=== PATIENT | male | born 1985 | race Caucasian/White ===

== ENCOUNTER 2016-09-25 20:28 | Emergency (ER) | payer BC ==
[~2016-09-25] VITALS: Ht 172.7 cm; Wt 113.6 kg
[~2016-09-25 20:28] MED LIST: CIPRO 500MG TA500 MG PO; DOXYCYCLINE 10100 MG PO; FLOMAX 0.40.4 MG/CAP PO; NO HOME MEDICATIONS; PERCOCET 325 MG1 TA2 PO; ZOCOR5 MG PO; ZOFRAN 4MG T4 MG/TAB PO
[2016-09-25 20:37] VITALS: TEMP 98.6
[2016-09-25 21:05] LABS: BASO # 0.1 (0.0-0.2); BASO % 0.5 % (0.0-2.0); EOS # 0.2 (0.0-0.7); EOS % 1.3 % (0-4.0); GRAN # 8.1 (1.4-6.5); GRAN % 63.4 % (42.2-75.2); HEMATOCRIT 47.7 % (42.0-52.0); HEMOGLOBIN 16.2 g/dl (13.5-18.0); LYMPH % 23.7 % (20.0-51.0); MEAN CELL VOLUME 90 fl (80.0-100.0); MEAN CORPUSCULAR HEMOGLOBIN 31 pg (27.0-31.0); MEAN CORPUSCULAR HGB CONC 34 g/dl (33.0-37.0); MEAN PLATELET VOLUME 9.1 fl (7.4-10.4); MONO # 1.3 (0.1-0.6); MONO % 10.5 % (1.7-9.3); PLATELET COUNT 345 K/mm3 (130-400); RED BLOOD COUNT 5.32 M/mm3 (4.20-5.60); REDCELL DISTRIBUTION WIDTH-CV 12.2 % (11.5-14.5); WHITE BLOOD COUNT 12.7 K/mm3 (4.8-10.8)
[2016-09-25 21:16] LABS: ADJUSTED CALCIUM 9.1 mg/dL (8.4-10.2); ALANINE AMINOTRANSFERASE 58 U/L (21-72); ALKALINE PHOSPHATASE 131 U/L (50-136); ANION GAP 12 mmol/L (7-16); BILIRUBIN,TOTAL 0.9 mg/dL (0.0-1.0); BLOOD UREA NITROGEN 14 mg/dL (9-20); CALCIUM 9.1 mg/dL (8.4-10.2); CARBON DIOXIDE 27 mmol/L (22-30); CHLORIDE 102 mmol/L (98-107); CREATININE, serum 1.12 mg/dL (0.66-1.25); GLUCOSE 107 mg/dL (74-106); LIPASE 81 U/L (23-300); MAGNESIUM 2.1 mg/dL (1.6-2.3); PHOSPHOROUS 3.3 mg/dL (2.5-4.5); POTASSIUM 3.9 mmol/L (3.4-5.0); SODIUM 141 mmol/L (137-145); TOTAL PROTEIN 7.8 gm/dL (6.4-8.2)
[2016-09-25 21:27] LABS: B-TYPE NATRIURETIC PEPTIDE 26 pg/mL (0-125)
[2016-09-25 21:28] LABS: TROPONIN-I < 0.012 ng/mL (0.000-0.034)
[2016-09-25 23:54] VITALS: BP 128/78; PULSE 80
== END 2016-09-25 23:56 | disposition home or self-care (01) ==
LOC: COL.ER 20:28
PROVIDERS: Emergency Medicine
DX: R07.89 Other chest pain (principal)

== ENCOUNTER 2017-10-27 15:08 | Emergency (ER) | payer BC ==
[~2017-10-27] VITALS: Ht 172.7 cm; Wt 115.9 kg
[2017-10-27 15:20] VITALS: TEMP 97.8
[2017-10-27 16:38] LABS: BASO # 0.1 (0.0-0.2); BASO % 0.7 % (0.0-2.0); EOS # 0.1 (0.0-0.7); EOS % 1.3 % (0-4.0); GRAN # 6.7 (1.4-6.5); GRAN % 62.7 % (42.2-75.2); HEMATOCRIT 45.5 % (42.0-52.0); HEMOGLOBIN 15.5 g/dl (13.5-18.0); LYMPH # 2.2 (1.2-3.4); MEAN CELL VOLUME 89 fl (80.0-100.0); MEAN CORPUSCULAR HEMOGLOBIN 30 pg (27.0-31.0); MEAN CORPUSCULAR HGB CONC 34 g/dl (33.0-37.0); MEAN PLATELET VOLUME 9.4 fl (7.4-10.4); MONO # 1.4 (0.1-0.6); MONO % 13.3 % (1.7-9.3); PLATELET COUNT 327 K/mm3 (130-400); RED BLOOD COUNT 5.14 M/mm3 (4.20-5.60)
[2017-10-27 16:53] LABS: CALCIUM 8.9 mg/dL (8.4-10.2); CREATININE, serum 1.12 mg/dL (0.66-1.25); POTASSIUM 3.8 mmol/L (3.4-5.0)
[2017-10-27 18:43] LABS: COLLECTION METHOD CLEAN CATCH
[2017-10-27 18:48] LABS: MUCOUS Present /lpf; PH 6 (5-8); SQUAMOUS EPITHELIAL None Seen /hpf; URINE APPEARANCE Clear; URINE BACTERIA None Seen /hpf; URINE BILIRUBIN Negative (NEGATIVE); URINE BLOOD 3+ (NEGATIVE); URINE COLOR Yellow; URINE GLUCOSE Negative (NEGATIVE); URINE KETONE Negative (NEGATIVE); URINE LEUKOCYTE ESTERASE Negative (NEGATIVE); URINE NITRATE Negative (NEGATIVE); URINE PROTEIN(semi-quant) 1+ (NEGATIVE); URINE RBC >50 /hpf; URINE UROBILINOGEN Negative (NEGATIVE)
[2017-10-27] MEDS ORDERED: PERCOCET 325 MG1 TA2 PO (19:35)
[2017-10-27] MEDS ORDERED: FLOMAX 0.40.4 MG/CAP PO (19:35)
[2017-10-27 20:05] VITALS: BP 128/70; PULSE 76
== END 2017-10-27 20:05 | disposition home or self-care (01) ==
LOC: COL.ER 15:08
PROVIDERS: Emergency Medicine
DX: N20.1 Calculus of ureter (principal); Z87.442 Personal history of urinary calculi
CPT/HCPCS: J1170; J1885; J2405; J7030

== ENCOUNTER 2017-10-29 18:52 | Observation (INO) | payer BC ==
[~2017-10-29] VITALS: Ht 172.7 cm; Wt 154.0 kg
[2017-10-29 19:12] LABS: COLLECTION METHOD CLEAN CATCH
[2017-10-29 19:35] LABS: MUCOUS Present /lpf; PH 5 (5-8); SQUAMOUS EPITHELIAL None Seen /hpf; URINE APPEARANCE Clear; URINE BACTERIA None Seen /hpf; URINE BILIRUBIN Negative (NEGATIVE); URINE BLOOD 2+ (NEGATIVE); URINE COLOR Yellow; URINE GLUCOSE Negative (NEGATIVE); URINE KETONE Trace (NEGATIVE); URINE LEUKOCYTE ESTERASE Negative (NEGATIVE); URINE NITRATE Negative (NEGATIVE); URINE PROTEIN(semi-quant) Negative (NEGATIVE); URINE UROBILINOGEN Negative (NEGATIVE)
[2017-10-29 19:39] LABS: BASO % 0.3 % (0.0-2.0); EOS # 0.1 (0.0-0.7); EOS % 0.5 % (0-4.0); GRAN # 9.5 (1.4-6.5); GRAN % 72.9 % (42.2-75.2); HEMATOCRIT 44.4 % (42.0-52.0); HEMOGLOBIN 15.2 g/dl (13.5-18.0); LYMPH # 1.9 (1.2-3.4); LYMPH % 14.8 % (20.0-51.0); MEAN CELL VOLUME 88 fl (80.0-100.0); MEAN CORPUSCULAR HEMOGLOBIN 30 pg (27.0-31.0); MEAN CORPUSCULAR HGB CONC 34 g/dl (33.0-37.0); MEAN PLATELET VOLUME 9.4 fl (7.4-10.4); MONO # 1.4 (0.1-0.6); PLATELET COUNT 305 K/mm3 (130-400); RED BLOOD COUNT 5.03 M/mm3 (4.20-5.60); REDCELL DISTRIBUTION WIDTH-CV 11.9 % (11.5-14.5)
[2017-10-29 19:43] LABS: ALBUMIN 3.8 gm/dL (3.5-5.0); BILIRUBIN,TOTAL 0.8 mg/dL (0.0-1.0); CALCIUM 9.1 mg/dL (8.4-10.2); CREATININE, serum 1.85 mg/dL (0.66-1.25); TOTAL PROTEIN 7.3 gm/dL (6.4-8.2)
[2017-10-29 22:09] VITALS: BP 117/64; PULSE 71
[2017-10-29 22:24] VITALS: BP 118/62; PULSE 68
[2017-10-29 22:37] VITALS: BP 117/64; PULSE 71; TEMP 97.8
[2017-10-29 22:39] VITALS: BP 117/70; PULSE 70
[2017-10-29 22:40] VITALS: BP 117/64; PULSE 71; TEMP 98.4
[2017-10-29 23:39] VITALS: BP 116/62; PULSE 70
[2017-10-30] VITALS (8 sets, daily range): BP systolic 91–157; BP diastolic 42–75; PULSE 56–87; TEMP 97.9–98.5
[2017-10-30 13:48] LABS: COLLECTION METHOD CLEAN CATCH
[2017-10-30 14:01] LABS: MUCOUS Present /lpf; PH 7 (5-8); SQUAMOUS EPITHELIAL None Seen /hpf; URINE APPEARANCE Clear; URINE BACTERIA None Seen /hpf; URINE BILIRUBIN Negative (NEGATIVE); URINE BLOOD 1+ (NEGATIVE); URINE COLOR Yellow; URINE GLUCOSE Negative (NEGATIVE); URINE KETONE Negative (NEGATIVE); URINE LEUKOCYTE ESTERASE Negative (NEGATIVE); URINE NITRATE Negative (NEGATIVE); URINE PROTEIN(semi-quant) Negative (NEGATIVE); URINE RBC 0-2 /hpf; URINE UROBILINOGEN Negative (NEGATIVE); URINE WBC 0-2 /hpf
[2017-10-31 05:10] VITALS: BP 103/51; PULSE 56; TEMP 97.8
[2017-10-31 09:30] VITALS: BP 117/71; PULSE 57; TEMP 97.8
[2017-10-31 13:46] VITALS: BP 119/73; PULSE 58; TEMP 97.7
== END 2017-10-31 16:40 | disposition home or self-care (01) ==
LOC: COL.ER 18:52 → SURG 21:26
PROVIDERS: Physician Assistant; Urology
DX: N20.1 Calculus of ureter (principal); E66.01 Morbid (severe) obesity due to excess calories; G47.33 Obstructive sleep apnea (adult) (pediatric)
CPT/HCPCS: G0378; J1885; J2270; J2405; J7030

== ENCOUNTER 2020-03-08 13:48 | Emergency (ER) | payer BC | END 2020-03-08 14:15 | disposition left against medical advice (07) | LOC: COL.ER 13:48 | DX: Z72.9 Problem related to lifestyle, unspecified (principal) ==